=== PATIENT | male | born 1990 | race Caucasian/White ===

== ENCOUNTER 2022-02-14 01:09 | Emergency (ER) | payer OTHER ==
[~2022-02-14] VITALS: Ht 193 cm; Wt 81.6 kg
--- NOTE | 2022-02-14 01:24 | NUR ---
TO ER BED 3. BIBFRIEND C/O ALLERGIC REACTION TO PEANUT BUTTER AROUND 0030, GIVEN EPI PEN 0040. AAOX4. AMBULATORY. NO SWELLING NOTED ON LIPS OR TOUNGE. PT STATES HE FEELS "SOME TINGLING IN THROAT BUT GETTING BETTER". O2SAT NOTED AT 98 IN RA. BREATHING IS EVEN AND NONLABORED. CONNECTED TO MONITOR. AWAITING MD YANEZ
[2022-02-14] MEDS ORDERED: FAMOTIDINE (20 MG) 20 MG TABLET ONE (01:59)
[2022-02-14] MEDS ORDERED: FAMOTIDINE (20 MG) 20 MG TABLET PO ONE (02:00)
[2022-02-14] MEDS ORDERED: OLAN10TA3 PO (04:22)
[2022-02-14] MEDS ORDERED: FAMO-131 PO (04:22)
[2022-02-14] MEDS ORDERED: EPIN0.3P3 IM (04:22)
[2022-02-14 04:26] VITALS: BP 128/77
--- NOTE | 2022-02-14 04:26 | NUR ---
Patient discharged to home in stable condition. Written and verbal after care instructions given. Patient verbalizes understanding of instruction.
== END 2022-02-14 04:26 | disposition home or self-care (01) ==
LOC: ER 01:14
DX: T78.05XA Anaphylactic reaction due to tree nuts and seeds, initial encounter (principal); Z79.899 Other long term (current) drug therapy